=== PATIENT | male | born 1985 | race Caucasian/White ===

== ENCOUNTER 2022-09-19 07:46 | Day surgery (SDC) | payer OTHER ==
[~2022-09-19] VITALS: Ht 177.8 cm; Wt 64.0 kg
[2022-09-19] VITALS (228 sets, daily range): BP systolic 89–140; BP diastolic 66–103
[2022-09-19 07:26] LABS: BASO% 0.7 % (0-3); HEMATOCRIT 43.1 % (39.0-50.0); HEMOGLOBIN 14.8 g/dl (14.0-18.0); IMMATURE GRANULOCYTES 0.2 % (0.0-5.0); LYMPH% 36.4 % (15-41); MEAN CELL VOLUME 95.8 fL CALC (80.0-100.0); MEAN CORPUSCULAR HGB 32.9 pG CALC (26.0-32.0); MEAN CORPUSCULAR HGB CONC 34.3 g/dL CAL (32.0-36.0); NEUT# 2.85 thou/uL (1.82-7.42); NEUT% 50.7 % (42-76); RED BLOOD COUNT 4.5 mill/uL (4.70-6.10); RED CELL DISTRI WIDTH 10.7 % (11.5-15.5)
[2022-09-19 07:38] LABS: ALBUMIN 4.8 g/dL (3.2-5.0); ALKALINE PHOSPHATASE 56 u/l (38-126); ANION GAP 10 (6-22 (CALC)); BILIRUBIN, TOTAL 0.4 mg/dL (0.2-1.3); BUN 10 mg/dL (9-20); BUN/CREATININE RATIO 12 (12-20 (CALC)); CARBON DIOXIDE 31 mmol/l (22-30); CHLORIDE 101 mmol/l (95-108); CREATININE 0.8 mg/dL (0.7-1.3); GFR FOR AFR.AMER. > 60 ML/MIN (>=60 (CALC)); GFR OTHER RACES > 60 ML/MIN (>=60 (CALC)); POTASSIUM 3.6 mmol/l (3.5-5.1); SGOT/AST 83 u/l (17-59); SODIUM 139 mmol/l (137-146); TOTAL PROTEIN 7.4 g/dL (6.3-8.2)
[2022-09-20 03:09] VITALS: BP 134/85
[2022-09-20 05:26] LABS: BASO% 0.5 % (0-3); EOS% 0.2 % (0-8); HEMOGLOBIN 14.2 g/dl (14.0-18.0); IMMATURE GRANULOCYTES 0.2 % (0.0-5.0); MEAN CELL VOLUME 96.2 fL CALC (80.0-100.0); MEAN CORPUSCULAR HGB 33.3 pG CALC (26.0-32.0); MEAN CORPUSCULAR HGB CONC 34.6 g/dL CAL (32.0-36.0); MONO% 2.7 % (2-13); NEUT# 3.66 thou/uL (1.82-7.42); NEUT% 83.4 % (42-76); RED BLOOD COUNT 4.26 mill/uL (4.70-6.10); RED CELL DISTRI WIDTH 10.9 % (11.5-15.5)
[2022-09-20 05:49] LABS: ALBUMIN 4.1 g/dL (3.2-5.0); ALKALINE PHOSPHATASE 47 u/l (38-126); ANION GAP 11 (6-22 (CALC)); BUN 9 mg/dL (9-20); BUN/CREATININE RATIO 12 (12-20 (CALC)); CARBON DIOXIDE 25 mmol/l (22-30); CHLORIDE 111 mmol/l (95-108); CREATININE 0.7 mg/dL (0.7-1.3); GFR FOR AFR.AMER. > 60 ML/MIN (>=60 (CALC)); GFR OTHER RACES > 60 ML/MIN (>=60 (CALC)); MAGNESIUM 2.2 mg/dL (1.6-2.3); POTASSIUM 3.8 mmol/l (3.5-5.1); SGOT/AST 66 u/l (17-59); SODIUM 143 mmol/l (137-146); TOTAL PROTEIN 6.6 g/dL (6.3-8.2)
[2022-09-20 05:50] LABS: BILIRUBIN, TOTAL 0.2 mg/dL (0.2-1.3)
[2022-09-20 07:25] VITALS: BP 119/75
[2022-09-20 08:34] VITALS: BP 119/75
== END 2022-09-20 12:12 | disposition home or self-care (01) | DRG 897 ==
LOC: ANR 07:46 → MS2 07:46 → ANR 08:00 → MS2 17:24 → ANR 09-20 12:12
PROVIDERS: ATTEND Anesthesiology
DX: F11.20 Opioid dependence, uncomplicated (principal)
CPT/HCPCS: J2060; J2354; J3475